=== PATIENT | female | born 1965 | race African-American/Black ===

== ENCOUNTER 2017-08-02 19:00 | Emergency (ER) | payer MEDICAID ==
[~2017-08-02] VITALS: Ht 165.1 cm; Wt 81.7 kg
[~2017-08-02 19:00] MED LIST: ACCURETIC 20-11 EACH PO; ADULT LOW DOSE81 MG PO; ADVIL COLD & S1 EAC1; ADVIL200 M2 PO; AMBIEN 5 MG TABL5 M1 PO; AMITRIPTYLINE H25 M2 PO; AMITRIPTYLINE H25 M3; AMITRIPTYLINE H25 M4 PO; AMOXICILLIN 50500 M1 PO; ASPIR 8181 MG PO; ASPIRIN81 M2 PO; ATIVAN1 MG PO; AUGMENTIN 875-1 EACH PO; AUGMENTIN 875875 MG PO; BACTRIM DS TAB1 EACH PO; BENTYL 10 MG CA10 M1 PO; BENTYL 20 MG TA20 M1 PO; BISAC-EVAC10 MG RECTAL; BISACODYL5 MG PO; CAMPRAL 333 MG333 M1 PO; CELEXA 10 MG TA10 MG PO; CELEXA20 MG PO; CENTRUM COMPLE1 EACH PO; CENTRUM SILVER1 EAC4 PO; CIPRO500 MG PO; CLARITIN10 MG PO; COLACE 100 MG100 MG PO; CREON 10 CAPSUL1 CA1 PO; CREON DR 24,001 EACH PO; CRESTOR10 MG PO; CYCLOBENZAPRINE10 MG PO; DIABETES MED; DUONEB 2.5-0.5 M3 ML INH; EASY-LAX100 MG PO; ELAVIL; FIBER1 GM PO; FISHOIL; FLAGYL500 MG PO; FLONASE 0.05%50 MCG NASAL; FOLBIC RF TABL1 EACH PO; FOLIC ACID1 MG PO; GLUCOPHAGE500 MG PO; GLUCOTROL XL2.5 MG PO; HUMALOG100 UNIT/1 SUBQ; HYDROCODON-ACE1 EAC8 PO; HYDROCODONE-AP1 EAC6 PO; IBUPROFEN 400400 M2 PO; IBUPROFEN 800800 M1 PO; IRON; IRON325 PO; K-DUR 20 MEQ T20 MEQ; K-DUR 20 MEQ T20 MEQ PO; KEFLEX500 MG PO; KEPPRA 500 MG500 M1 PO; KEPPRA 500 MG500 MG PO; KLOR-CON 10 ER10 MEQ PO; LANTUS SUBQ; LANTUS100 UNIT/M SUBQ; LEVAQUIN 500 M500 M2 PO; LIPITOR10 MG; LISINOPRIL-HCT1 EAC2 PO; LOPID600 MG PO; LOPRESSOR25 PO; MACROBID 100 M100 MG PO; MAGNESIUM OXID400 MG PO; MAGOX 400400 MG PO; MAXALT; MAXALT MLT ODT 55 M1 PO; MECLIZINE HCL12.5 MG PO; MECLIZINE HCL25 M1 PO; METFORMIN HCL500 MG PO; METOPROLOL SUCC50 MG PO; MICROZIDE12.5 MG PO; MIRALAX17 G1 PO; MOBIC7.5 M1 PO; MOBIC7.5 MG PO; MOM PO; MULTIVITAMINS PO; MULTIVITAMINS1 EAC7 PO; NAPROSYN500 MG PO; NEXIUM 40 MG CA40 M1; NEXIUM40 MG PO; NICOTINE TRANSD14 M1 TD; NICOTINE TRANSD21 M1 TD; NORCO 5-325 TA1 EAC1 PO; NORCO 5-325 TA1 EACH PO; NORFLEX100 MG PO; OMEPRAZOLE40 MG PO; ONDANSETRON HCL4 M2 PO; OXYCODONE HCL 55 MG PO; PANCRELIPASE PO; PANTOPRAZOLE SO40 M1 PO; PAXIL10 MG; PEPCID40 MG PO; PERCOCET 5-3251 EACH PO; PERCOCET 7.5-31 EACH; PERCOCET PO; PHENERGAN 25 MG25 M1 PO; PHENERGAN 25 MG25 MG PO; PREDNISONE 10 M10 MG PO; PREDNISONE 20 M20 M1 PO; PREDNISONE50 MG PO; PRILOSEC40 MG PO; PRINIVIL20 MG PO; PROPRANOLOL 4040 MG PO; QUINAPRIL 20 MG20 MG PO; ROBAXIN 750 MG750 M1 PO; ROXICODONE5 MG PO; SSD25 GM TOP; TESSALON200 MG PO; TOPROL XL50 MG PO; TRAMADOL 50 MG50 MG PO; TRAMADOL HCL150 MG PO; ULTRACET TABLE1 EACH; ULTRAM 50MG TAB50 MG PO; ULTRAM50 MG PO; UNICOMPLEX M TA1 TA1 PO; VALACYCLOVIR1000 MG PO; VIOKASE PO; VITAMIN B-1100 M1 PO; ZANTAC 150MG T150 M1 PO; ZANTAC 150MG T150 MG PO; ZOFRAN ODT4 MG DISSOLVE; ZOFRAN ODT4 MG PO; ZOFRAN4 MG PO; ZOVIRAX200 MG PO; ZPAK PO
[2017-08-02 19:53] LABS: ABSOLUTE BASOPHILS 0.1 thou/uL (0.0-0.2); ABSOLUTE EOSINOPHILS 0.1 thou/uL (0.0-0.7); ABSOLUTE LYMPHOCYTES 2.7 thou/uL (0.8-5.3); ABSOLUTE MONOCYTES 0.5 thou/uL (0.0-1.2); ABSOLUTE NEUTROPHILS 3.2 thou/uL (1.6-8.1); BASOPHILS 0.9 %; HEMATOCRIT 40.4 % (37.0-47.0); HEMOGLOBIN 13.5 gm/dL (12.0-15.0); LYMPHOCYTES 40.9 %; MCH 32.6 pg (26.0-34.0); MCHC 33.4 g/dL (28.0-37.0); MCV 97.5 fL (80.0-100.0); MONOCYTES 7.9 %; MPV 10.1 fl. (7.2-11.1); NUCLEATED RBCS 0 /100WBC; PLATELET COUNT* 111 thou/uL (150-400); POLYS 49.3 %; RBC 4.15 mil/uL (4.20-5.00); RDW-CV 13.6 % (10.5-14.5); WBC 6.5 thou/uL (4.0-11.0)
[2017-08-02 19:58] LABS: CALCIUM 9.7 mg/dL (8.5-10.1); CREATININE 1.3 mg/dL (0.6-1.3)
[2017-08-02 20:03] LABS: ALBUMIN 3.9 g/dL (3.4-5.0); TOTAL BILIRUBIN 0.4 mg/dL (<0.1-1.0); TOTAL PROTEIN 8.1 g/dL (6.4-8.2)
[2017-08-02 22:06] LABS: URINE BILIRUBIN NEGATIVE (Negative); URINE BLOOD NEGATIVE (Negative); URINE CLARITY CLEAR; URINE COLOR YELLOW; URINE GLUCOSE-RANDOM 3+ (Negative); URINE KETONES NEGATIVE (Negative); URINE LEUKOCYTES-REFLEX NEGATIVE (Negative); URINE NITRITE-REFLEX NEGATIVE (Negative); URINE PROTEIN NEGATIVE (Negative); URINE SPECIFIC GRAVITY 1.015 (1.005-1.030); URINE UROBILINOGEN 0.2 E.U./dl (0.2-1.0)
[2017-08-03 00:27] VITALS: BP 131/78
--- NOTE | 2017-08-03 20:14 | EKG ---
[place] [address] ELECTROCARDIOGRAM REPORT Name: SHAHRAM QUESADAIAMA SADIE Room: [facility]#: [id number] Admission: 08/02/17 Attend Phys: Discharge: 08/03/17 Date of : 63 Report #: [id number] THIS REPORT FOR: //name// [facility] ED Test Date: 2017-08-02 Test Time: 19:51:38 Pat Name: AMANDA QUESADA Department: Room: Gender: F Optimization Specialist: FRANKY Nava : 1965 Requested By: Sydnee Davis Order Number: [id number] MD: Jose C Delarosa Measurements Intervals [place] Rate: 72 P: 30 ND: 132 QRS: -14 QRSD: 90 T: 7 QT: 377 QTc: 413 Interpretive Statements Sinus rhythm Probable left atrial enlargement Low voltage, precordial leads Left ventricular hypertrophy Anterior Q waves, possibly due to LVH Compared to ECG 06/05/2017 08:46:13 Low QRS voltage now present Left ventricular hypertrophy now present Q waves now present Electronically Signed On 08-03-2017 20:14:17 BINGO FLOATER by Jose C Delarosa [email or web address] <ELECTRONICALLY SIGNED> By: Jose C Delarosa MD, FACC 08/03/172013 50 50 Jose C Delarosa MD, FACC /EPI
== END 2017-08-03 00:34 | disposition home or self-care (01) ==
LOC: M.ERS 19:00
PROVIDERS: Emergency Medicine
DX: E11.65 Type 2 diabetes mellitus with hyperglycemia (principal); K74.60 Unspecified cirrhosis of liver; G43.909 Migraine, unspecified, not intractable, without status migrainosus; E11.40 Type 2 diabetes mellitus with diabetic neuropathy, unspecified; F17.210 Nicotine dependence, cigarettes, uncomplicated; Z88.8 Allergy status to other drugs, medicaments and biological substances; Z88.1 Allergy status to other antibiotic agents; Z79.4 Long term (current) use of insulin

== ENCOUNTER 2017-08-08 16:19 | Emergency (ER) | payer MEDICAID ==
[~2017-08-08] VITALS: Ht 165.1 cm; Wt 81.7 kg
[2017-08-08 16:25] VITALS: BP 117/78
[2017-08-08] MEDS ORDERED: NAPROSYN500 MG PO (17:19)
[2017-08-08] MEDS ORDERED: NORCO 5-325 TA1 EACH PO (17:19)
== END 2017-08-08 18:01 | disposition home or self-care (01) ==
LOC: M.ERS 16:19
DX: S63.592A Other specified sprain of left wrist, initial encounter (principal); G43.909 Migraine, unspecified, not intractable, without status migrainosus; E11.40 Type 2 diabetes mellitus with diabetic neuropathy, unspecified; K74.60 Unspecified cirrhosis of liver; F17.210 Nicotine dependence, cigarettes, uncomplicated; Z79.4 Long term (current) use of insulin; Z88.1 Allergy status to other antibiotic agents; Z88.8 Allergy status to other drugs, medicaments and biological substances; W18.39XA Other fall on same level, initial encounter; Y93.89 Activity, other specified; Y92.89 Other specified places as the place of occurrence of the external cause; Y99.8 Other external cause status

== ENCOUNTER 2017-10-19 16:34 | Emergency (ER) | payer MEDICAID ==
[~2017-10-19] VITALS: Ht 167.6 cm; Wt 78.5 kg
[2017-10-19] MEDS ORDERED: LANTUS100 UNIT/M SUBQ (16:50)
[2017-10-19 16:53] LABS: URINE BILIRUBIN NEGATIVE (Negative); URINE BLOOD 1+ (Negative); URINE CLARITY CLOUDY; URINE COLOR YELLOW; URINE GLUCOSE-RANDOM 3+ (Negative); URINE KETONES 1+ (Negative); URINE LEUKOCYTES-REFLEX TRACE (Negative); URINE NITRITE-REFLEX NEGATIVE (Negative); URINE PROTEIN NEGATIVE (Negative); URINE SPECIFIC GRAVITY <= 1.005 (1.005-1.030); URINE UROBILINOGEN 0.2 E.U./dl (0.2-1.0)
[2017-10-19 17:02] LABS: SQUAMOUS >10 Many /LPF (0-3)
[2017-10-19 17:03] LABS: CASTS None Seen /LPF (None Seen); CRYSTALS None Seen /LPF (None Seen); MUCUS 0-3 Light strn/LPF (None Seen); URINE RBC 3-10 Few /HPF (0-2); URINE WBC-REFLEX >25 Many /HPF (0-5); WBC CLUMPS Few (None Seen)
[2017-10-19] MEDS ORDERED: BACTRIM DS TAB1 EACH PO (17:07)
[2017-10-19] MEDS ORDERED: DIFLUCAN150 MG PO (17:07)
[2017-10-19] MEDS ORDERED: PYRIDIUM200 MG PO (17:07)
[2017-10-19 17:40] VITALS: BP 137/86
== END 2017-10-19 17:41 | disposition home or self-care (01) ==
LOC: M.ERS 16:34
PROVIDERS: Nurse Practitioner Family
DX: N39.0 Urinary tract infection, site not specified (principal); B37.9 Candidiasis, unspecified; F17.210 Nicotine dependence, cigarettes, uncomplicated; E11.40 Type 2 diabetes mellitus with diabetic neuropathy, unspecified; G43.909 Migraine, unspecified, not intractable, without status migrainosus; K74.60 Unspecified cirrhosis of liver; Z79.4 Long term (current) use of insulin; Z88.8 Allergy status to other drugs, medicaments and biological substances; Z88.1 Allergy status to other antibiotic agents

== ENCOUNTER 2018-01-31 16:31 | Emergency (ER) | payer MEDICAID ==
[~2018-01-31] VITALS: Ht 165.1 cm; Wt 77.1 kg
[~2018-01-31 16:31] MED LIST changes: +DIFLUCAN150 MG PO; +PYRIDIUM200 MG PO
[2018-01-31 17:09] LABS: ABSOLUTE BASOPHILS 0.1 thou/uL (0.0-0.2); ABSOLUTE EOSINOPHILS 0.1 thou/uL (0.0-0.7); ABSOLUTE LYMPHOCYTES 3.2 thou/uL (0.8-5.3); ABSOLUTE MONOCYTES 0.7 thou/uL (0.0-1.2); ABSOLUTE NEUTROPHILS 2.7 thou/uL (1.6-8.1); BASOPHILS 1.2 %; EOSINOPHILS 1.3 %; HEMATOCRIT 39.7 % (37.0-47.0); HEMOGLOBIN 13.1 gm/dL (12.0-15.0); MCV 99.8 fL (80.0-100.0); MONOCYTES 10.5 %; MPV 9.3 fl. (7.2-11.1); NUCLEATED RBCS 0 /100WBC; PLATELET COUNT* 115 thou/uL (150-400); RBC 3.98 mil/uL (4.20-5.00); RDW-CV 14.8 % (10.5-14.5); WBC 6.8 thou/uL (4.0-11.0)
[2018-01-31 17:17] LABS: ANION GAP 11 mmol/L (7-16); BUN 6 mg/dL (7-18); CALCIUM 8.5 mg/dL (8.5-10.1); CHLORIDE 101 mmol/L (98-107); CO2 28 mmol/L (21-32); GLUCOSE 353 mg/dL (70-99); POTASSIUM 3.8 mmol/L (3.5-5.1); SODIUM 140 mmol/L (136-145)
[2018-01-31 17:23] LABS: APTT 25.5 Seconds (25.0-31.3); INR 1.2; PROTIME 11.5 Seconds (9.20-11.50)
[2018-01-31 17:24] LABS: ALBUMIN 2.8 g/dL (3.4-5.0); ALKALINE PHOSPHATASE 291 U/L (46-116); SGOT 98 U/L (15-37); SGPT 64 U/L (30-65); TOTAL BILIRUBIN 0.4 mg/dL (<0.1-1.0); TROPONIN-I LEVEL <0.06 ng/mL (<0.06)
[2018-01-31 19:10] VITALS: BP 110/62
--- NOTE | 2018-02-01 11:05 | EKG ---
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 02/01/18 1105 1701 170 Brigido Gutierrez MD, [facility] /EPI
== END 2018-01-31 19:10 | disposition short-term general hospital (02) ==
LOC: M.ERS 16:31
PROVIDERS: Physician Assistant
DX: S01.81XA Laceration without foreign body of other part of head, initial encounter (principal); S11.90XA Unspecified open wound of unspecified part of neck, initial encounter; S16.1XXA Strain of muscle, fascia and tendon at neck level, initial encounter; S10.95XA Superficial foreign body of unspecified part of neck, initial encounter; F10.129 Alcohol abuse with intoxication, unspecified; Y90.6 Blood alcohol level of 120-199 mg/100 ml; E11.65 Type 2 diabetes mellitus with hyperglycemia; R55 Syncope and collapse; E87.2 Acidosis; G43.909 Migraine, unspecified, not intractable, without status migrainosus; K74.60 Unspecified cirrhosis of liver; F17.210 Nicotine dependence, cigarettes, uncomplicated; Z88.1 Allergy status to other antibiotic agents; Z88.8 Allergy status to other drugs, medicaments and biological substances; W18.39XA Other fall on same level, initial encounter; Y93.89 Activity, other specified; Y92.89 Other specified places as the place of occurrence of the external cause; Y99.8 Other external cause status

== ENCOUNTER 2018-02-25 22:25 | Emergency (ER) | payer MEDICAID ==
[~2018-02-25] VITALS: Ht 165.1 cm; Wt 77.1 kg
[2018-02-26 00:26] VITALS: BP 106/62
== END 2018-02-26 00:28 | disposition home or self-care (01) ==
LOC: M.ERS 22:25
DX: S01.01XA Laceration without foreign body of scalp, initial encounter (principal); F10.129 Alcohol abuse with intoxication, unspecified; W18.30XA Fall on same level, unspecified, initial encounter; Y93.89 Activity, other specified; Y92.89 Other specified places as the place of occurrence of the external cause; Y99.8 Other external cause status; G43.909 Migraine, unspecified, not intractable, without status migrainosus; E11.40 Type 2 diabetes mellitus with diabetic neuropathy, unspecified; Z90.49 Acquired absence of other specified parts of digestive tract; F17.210 Nicotine dependence, cigarettes, uncomplicated; Z88.1 Allergy status to other antibiotic agents; Z88.8 Allergy status to other drugs, medicaments and biological substances

== ENCOUNTER 2018-03-13 15:09 | Inpatient (IN) | payer MEDICAID ==
[2018-03-13] VITALS (8 sets, daily range): BP systolic 135–162; BP diastolic 70–90
[~2018-03-13] VITALS: Ht 165.1 cm; Wt 80.6 kg
[2018-03-13 15:40] LABS: ABSOLUTE BASOPHILS 0.2 thou/uL (0.0-0.2); ABSOLUTE LYMPHOCYTES 1.5 thou/uL (0.8-5.3); ABSOLUTE MONOCYTES 0.7 thou/uL (0.0-1.2); ABSOLUTE NEUTROPHILS 7.2 thou/uL (1.6-8.1); EOSINOPHILS 0.5 %; HEMATOCRIT 32.1 % (37.0-47.0); HEMOGLOBIN 10.5 gm/dL (12.0-15.0); LYMPHOCYTES 15.8 %; MCH 33.3 pg (26.0-34.0); MCHC 32.6 g/dL (28.0-37.0); MCV 101.9 fL (80.0-100.0); MONOCYTES 7.4 %; MPV 9.6 fl. (7.2-11.1); NUCLEATED RBCS 0 /100WBC; PLATELET COUNT* 108 thou/uL (150-400); POLYS 74.3 %; RBC 3.15 mil/uL (4.20-5.00); RDW-CV 15.6 % (10.5-14.5); WBC 9.7 thou/uL (4.0-11.0)
[2018-03-13 15:53] LABS: ANION GAP 12 mmol/L (7-16); BUN 5 mg/dL (7-18); CALCIUM 7.7 mg/dL (8.5-10.1); CHLORIDE 108 mmol/L (98-107); CO2 24 mmol/L (21-32); CREATININE 0.9 mg/dL (0.6-1.3); GLUCOSE 197 mg/dL (70-99); POTASSIUM 4.4 mmol/L (3.5-5.1); SODIUM 144 mmol/L (136-145)
[2018-03-13 15:55] LABS: APTT 29.4 Seconds (25.0-31.3); INR 1.2; PROTIME 12.5 Seconds (9.20-11.50)
[2018-03-13 16:04] LABS: ALBUMIN 1.7 g/dL (3.4-5.0); ALKALINE PHOSPHATASE 237 U/L (46-116); NT-PRO BRAIN NAT PEPTIDE 1058 pg/mL (<300); SGOT 43 U/L (15-37); SGPT 23 U/L (30-65); TOTAL BILIRUBIN 0.6 mg/dL (<0.1-1.0); TOTAL PROTEIN 6.1 g/dL (6.4-8.2); TROPONIN-I LEVEL <0.06 ng/mL (<0.06)
[2018-03-13 16:08] LABS: BE -1.7 mmol/L (-2 to +3); HCO3 21.1 mmol/L (22.0-26.0); PCO2 29.7 mmHg (35.0-45.0); PO2 62.7 mmHg (75.0-100.0)
[2018-03-13 20:39] LABS: URINE BILIRUBIN NEGATIVE (Negative); URINE BLOOD NEGATIVE (Negative); URINE CLARITY CLEAR; URINE COLOR YELLOW; URINE GLUCOSE-RANDOM 2+ (Negative); URINE KETONES NEGATIVE (Negative); URINE LEUKOCYTES-REFLEX NEGATIVE (Negative); URINE NITRITE-REFLEX NEGATIVE (Negative); URINE PROTEIN NEGATIVE (Negative); URINE UROBILINOGEN 0.2 E.U./dl (0.2-1.0)
[2018-03-13 20:52] LABS: INFLUENZA A ANTIGEN None Detected (None Detect); INFLUENZA B ANTIGEN None Detected (None Detect)
[2018-03-13 21:32] LABS: AMP/METHAMP Negative (Negative); BARBITURATES Negative (Negative); BENZODIAZEPINES Negative (Negative); COCAINE Negative (Negative); METHADONE Negative (Negative); OPIATES POSITIVE (Negative); PCP Negative (Negative); THC Negative (Negative)
[2018-03-14] VITALS (22 sets, daily range): BP systolic 95–161; BP diastolic 35–101
[2018-03-14 04:22] LABS: ABSOLUTE BASOPHILS 0.1 thou/uL (0.0-0.2); ABSOLUTE MONOCYTES 0.4 thou/uL (0.0-1.2); ABSOLUTE NEUTROPHILS 7.9 thou/uL (1.6-8.1); BASOPHILS 0.6 %; HEMATOCRIT 27.4 % (37.0-47.0); HEMOGLOBIN 9.1 gm/dL (12.0-15.0); LYMPHOCYTES 10.8 %; MCH 33.6 pg (26.0-34.0); MCHC 33.3 g/dL (28.0-37.0); MCV 101.1 fL (80.0-100.0); MONOCYTES 4.8 %; MPV 9.9 fl. (7.2-11.1); NUCLEATED RBCS 0 /100WBC; PLATELET COUNT* 103 thou/uL (150-400); POLYS 83.8 %; RBC 2.71 mil/uL (4.20-5.00); RDW-CV 15.4 % (10.5-14.5); WBC 9.4 thou/uL (4.0-11.0)
[2018-03-14 04:35] LABS: CALCIUM 7.4 mg/dL (8.5-10.1); CREATININE 0.8 mg/dL (0.6-1.3); POTASSIUM 4.1 mmol/L (3.5-5.1)
--- NOTE | 2018-03-14 06:23 | NUR ---
Pt admitted to ICU shortly before start of shift. SaO2 low 90s on 15L NRB mask, RR upper 30s. C/O pain beneath R breast secondary to rib fxs. Received order from Dr. Davis for one time dose of Oxy IR. Pt states pain 10/10, then down to 8/10 after Oxy IR. Pt started on BIPAP at 2230, and RR in mid- 20s with SaO2 in mid-90s. Breath snds clear/dim throughout shift. Santos placed, draining clear yellow urine. Pt c/o headache d/t BIPAP. Tylenol given with little to no relief. At one point, bc of headache, pt removed BIPAP; SaO2 dropped to upper 50s before NRB placed, then BIPAP replaced. Educated pt on importance of keeping BIPAP on. Will continue to monitor.
--- NOTE | 2018-03-14 08:02 | NUR ---
ASSUMED PT CARE 0730. PT A/O X'S 4. TRACING SR. VSS. AFEBRILE. PT ON BIPAP AND REQUESTED TO TAKE OFF. PT 99% ON BIPAP. PT PLACED ON NON-REBREATHER AND CURRENTLY SATTING AT 91-92%. PT DENIES PAIN. PT REPORTS SHE HAD STABLES IN LEFT ANTERIOR PART OF HEAD THAT WERE REMOVED AND FEELS TENDER AT THAT SPOT. PT REQUESTING FOOD. DISCUSSED WITH PT LABS AND PLAN OF CARE. WILL CONTINUE PLAN OF CARE.
--- NOTE | 2018-03-14 11:00 | NUR ---
PT ADMITTED YESTERDAY WITH RESP FAILURE. PT REMAINS ON NRB MASK. SPOKE WITH PT, SHE WAS ALERT AND ORIENTED. SHE SAID SHE LIVES ALONE, HER S.O. NORMA COMES BY EVERY DAY TO CHECK ON HER, SOMETIMES HE STAYS AND SOMETIMES HE GOES BACK TO HIS OWN HOME. SHE SAID SHE HAS BEEN USING HER WALKER RECENTLY BUT IS STILL HAVING PROBLEMS WITH FALLING AT HOME. SHE DOES NOT HAVE HOME 02. PT SAID SHE NO LONGER SMOKES OR DRINKS, 'I QUIT THAT ON MY OWN AFTER A HOSPITAL STAY.' DISCUSSED ROLE OF CASE MGT, WILL CONTINUE TO FOLLOW. PT PLANS ON RETURNING HOME ALONE, WITH CONTINUED SUPPORT FROM HER S.O. AND FAMILY.
--- NOTE | 2018-03-14 12:43 | 2DMMODE ---
[place] [address] 2 D/M-MODE ECHOCARDIOGRAM Name: SHAHRAM QUESADAAMANDA Room: [address] ADM IN M.R.#: [id number] Admission: 03/13/18 Attend Phys: Roge Davis, Discharge: Date of : 63 Date of Service: 03/14/18 1242 Report #: [id number] THIS REPORT FOR: //name// APPROVED REPORT Study performed: 03/14/2018 10:29:39 EXAM: Comprehensive 2D, Doppler, and color-flow Echocardiogram Patient Location: Bedside BSA: 1.94 HR: 97 bpm BP: 140/85 mmHg Other Information Study Quality: Fair Indications Sepsis 2D Dimensions IVSd: 12.69 (7-11mm) LVOT Diam: 19.01 (18-24mm) LVDd: 45.91 mm PWd: 10.71 (7-11mm) Ascending Ao: 27.35 (22-36mm) LVDs: 27.74 (25-40mm) Aortic Root: 22.92 mm Volumes Left Atrial Volume (Systole) LA ESV Index: 21.80 mL/m2 Aortic Valve AoV Peak Dyllan.: 1.26 m/s AO Peak Gr.: 6.34 mmHg LVOT Max P.12 mmHg AO Mean Gr.: 3.32 mmHg LVOT Mean P.10 mmHg LVOT Max V: 1.01 m/s AO V2 VTI: 23.05 cm LVOT Mean V: 0.68 m/s VANDANA (VTI): 2.78 cm2 LVOT V1 VTI: 22.57 cm Mitral Valve E/A Ratio: 1.02 MV Decel. Time: 244.49 ms MV E Max Dyllan.: 0.74 m/s MV PHT: 70.90 ms MVA (PHT): 3.10 [place]2 [place] [address] 2 D/M-MODE ECHOCARDIOGRAM Name: SHAHRAM QUESADAAMANDA SADIE Room: [address] IN ..#: [id number] Admission: 03/13/18 Attend Phys: Roge Davis, Discharge: Date of : 63 Date of Service: 03/14/18 1242 Report #: [id number] TDI E/Lateral E': 6.17 E/Medial E': 9.25 Medial E' Dyllan.: 0.08 m/s Lateral E' Dyllan.: 0.12 m/s Pulmonary Valve PV Peak Dyllan.: 0.81 m/s PV Peak Gr.: 2.60 mmHg Tricuspid Valve RAP Estimate: 5.00 mmHg TR Peak Gr.: 37.95 mmHg RVSP: 42.95 mmHg PA Pressure: 42.95 mmHg Left Ventricle The left ventricle is normal size. There is normal LV segmental wall motion. There is normal left ventricular wall thickness. Left ventricular systolic function is normal. The left ventricular ejection fraction is within the normal range. LVEF is 60%. The left ventricular diastolic function is normal. Right Ventricle The right ventricle is normal size. The right ventricular systolic function is normal. Atria The left atrium size is normal. The right atrium size is normal. Aortic Valve The aortic valve is normal in structure. No aortic regurgitation is present. There is no aortic valvular stenosis. Mitral Valve The mitral valve is normal in structure. Trace mitral regurgitation. No evidence of mitral valve stenosis. Tricuspid Valve The tricuspid valve is normal in structure. Mild to moderate tricuspid regurgitation. Pulmonic Valve The pulmonary valve is normal in structure. There is no pulmonic valvular regurgitation[place] [address] 2 D/M-MODE ECHOCARDIOGRAM Name: AMANDA ROGERS Room: [address] IN [facility]#: [id number] Admission: 03/13/18 Attend Phys: Roge Davis, Discharge: Date of : 63 Date of Service: 03/14/18 1242 Report #: [id number] The aortic root is normal in size. IVC is not well visualized. Pericardium There is no pericardial effusion. <Conclusion> The left ventricle is normal size. There is normal left ventricular wall thickness. Left ventricular systolic function is normal. The left ventricular ejection fraction is within the normal range. LVEF is 60%. The left ventricular diastolic function is normal. The right ventricle is normal size. The left atrium size is normal. The aortic valve is normal in structure. The mitral valve is normal in structure. The tricuspid valve is normal in structure. Mild to moderate tricuspid regurgitation. There is no pericardial effusion. There is normal LV segmental wall motion. <ELECTRONICALLY SIGNED> By: Ender Hodge MD, FACC 03/14/18 1242 1242 124 Ender Hodge MD, FACC /INF
--- NOTE | 2018-03-14 16:28 | EKG ---
[place] [address] ELECTROCARDIOGRAM REPORT Name: AMANDA ROGERSBRIDGETTEJudith Room: [address] ADM IN M.R.#: [id number] Admission: 03/13/18 Attend Phys: Roge Davis MD Discharge: Date of : 63 Report #: [id number] THIS REPORT FOR: //name// [facility] ED Test Date: 2018-03-13 Test Time: 15:19:01 Pat Name: AMANDA QUESADA Department: Room: [facility] Gender: F Cpr Ambulance Driver: HEATHER : 1965 Requested By: Parag Vincent Order Number: [id number] MD: Ender Hodge Measurements Intervals [place] Rate: 113 P: 22 OK: 119 QRS: 17 QRSD: 86 T: -16 QT: 347 QTc: 476 Interpretive Statements Sinus tachycardia Low voltage, precordial leads Borderline T abnormalities, diffuse leads Borderline prolonged QT interval Compared to ECG 01/31/2018 17:01:00 Low QRS voltage now present T-wave abnormality now present Sinus rate has increased Left ventricular hypertrophy no longer present Electronically Signed On 03-14-2018 16:28:16 CDT by Ender Hodge [email or web address] <ELECTRONICALLY SIGNED> By: Ender Hodge MD, [facility] 03/14/18 1628 1519 1519 Ender Hodge MD, [facility] /EPI
--- NOTE | 2018-03-14 16:31 | NUR ---
PER PULMONARY PT CHANGED TO NC AT 15L NC DURING BREAKFAST. PT DESATS TO 71% AND UNABLE TO BRING SATS UP HIGHER THAN 81%. PT PLACED BACK ON NRB AND PULMONARY NOTIFIED. PER PULMONARY PT OKAY TO EAT A BITE OF FOOD WHILE ON BIPAP IF ABLE TO MAINTAIN SATS UP. AT LUNCH PT DESATTING TO 56% AFTER A COUPLE BITES OF FOOD. FOOD TAKEN AWAY AND PT PLACED ON BIPAP. CURRENTLY PT STATES SHE FEELS BREATHING IS BETTER. PT SATTING >95% ON BIPAP. PT C/O OF NAUSEA PRN ZOFRAN ADMINISTERED. PT C/O OF CHEST PAIN WITH COUGHING AND INSPIRATION. DR NOTIFIED. PER NARCOTICS WILL NOT HELP PT'S RESPIRATORY STATUS. RECIEVED PRN ORDER FOR OXY. PT EDUCATED ON NARCOTICS AND RESPIRATORY STATUS. PT REPORTS SHE IS OKAY TO NOT TAKE PAIN MEDICATION AT THIS TIME. PT REPORTS COMFORTABLE PAIN NUMBER IS 5/10.
--- NOTE | 2018-03-14 18:27 | NUR ---
PT WORE BIPAP THIS AFTERNOON FOR 4 HOURS FROM 1300 TO 1700. PT OFF BIPAP FOR 1 HOUR AND 15 MINUTES. PT ATTEMPTED TO EAT DINNER, HOWEVER DESATTING TO 81% ON NON-REBREATHER. PT REQUESTED TO GO BACK ON BIPAP AND REPORTS BREATHING IS BETTER WITH BIPAP. PT REQUESTED HER PRN OXY IR. PT EDUCATED 2ND TIME ABOUT TRYING TO AVOID NARCOTICS FOR RESPIRATORY STATUS.
--- NOTE | 2018-03-14 18:29 | NUR ---
ATTENTION CASE MANAGEMENT: PT AND SPOUSE REPORT PT NEEDS WALKER SHE CAN SIT IN AT HOME AND SHOWER CHAIR OR BENCH FOR SHOWER. SPOUSE REPORTS PT HAS HAD EPISODES OF HYPOGLYCEMIA AND PT DOES NOT LIKE GLUCOSE TABS AND AT ONE POINT BLOOD GLUCOSE WAS TOO LOW AND NEEDED GEL. SPOUSE REPORTS WHENEVER THEY GO TO [facility] FOR GLUCOSE GEL, PHARMACY IS OUT.
[2018-03-15] VITALS (19 sets, daily range): BP systolic 111–187; BP diastolic 63–100
[2018-03-15 04:42] LABS: HEMATOCRIT 29.2 % (37.0-47.0); HEMOGLOBIN 9.4 gm/dL (12.0-15.0); MCH 32.9 pg (26.0-34.0); MCHC 32.2 g/dL (28.0-37.0); MCV 102.1 fL (80.0-100.0); MPV 9.9 fl. (7.2-11.1); NUCLEATED RBCS 0 /100WBC; PLATELET COUNT* 139 thou/uL (150-400); RBC 2.86 mil/uL (4.20-5.00); RDW-CV 15.7 % (10.5-14.5); WBC 11.4 thou/uL (4.0-11.0)
--- NOTE | 2018-03-15 04:50 | NUR ---
Pt slept intermittently overnight. Was on BIPAP for almost entire shift with exception of when taking po meds on 3 occasions. When on NRB mask, O2 sats are labile. Within 5-10 minutes SaO2 drops to upper 80s. Medicated once for c/o pain to rt side of chest from recent rib fxs. Reports that she fell asleep within an hour of taking the medication. VSS. Otherwise no complaints. Will continue to monitor.
[2018-03-15 04:55] LABS: ALBUMIN 1.5 g/dL (3.4-5.0); CALCIUM 7.2 mg/dL (8.5-10.1); CREATININE 0.7 mg/dL (0.6-1.3); POTASSIUM 4.3 mmol/L (3.5-5.1); TOTAL BILIRUBIN 0.4 mg/dL (<0.1-1.0); TOTAL PROTEIN 6.1 g/dL (6.4-8.2)
[2018-03-15 05:52] LABS: ABSOLUTE LYMPHOCYTES 0.9 thou/uL (0.8-5.3); ABSOLUTE MONOCYTES 0.3 thou/uL (0.0-1.2); ABSOLUTE NEUTROPHILS 10.1 thou/uL (1.6-8.1); HYPOCHROMASIA Occasional; PLATELET ESTIMATE DECREASED
[2018-03-15 05:53] LABS: ANISOCYTOSIS 1+; POIKILOCYTOSIS 1+; POLYCHROMASIA Occasional
[2018-03-15 07:53] LABS: BE -3.2 mmol/L (-2 to +3); HCO3 21.6 mmol/L (22.0-26.0); PCO2 37.7 mmHg (35.0-45.0); pH 7.376 (7.340-7.450)
--- NOTE | 2018-03-15 07:56 | CON ---
[address] [address] CONSULTATION Name: AMANDA ROGERS Room: [address] IN M.R.#: [id number] Admission: 03/13/18 Attend Phys: Roge Davis MD Discharge: Date of : 63 Report #: [id number] THIS REPORT FOR: //name// CC: Roge Davis [facility] physician/PCP DATE OF SERVICE: 03/14/2018 INFECTIOUS DISEASE CONSULTATION ATTENDING PHYSICIAN: Roge Davis M.D. REASON FOR EVALUATION: Bilateral pneumonitis complicated by respiratory failure. HISTORY OF PRESENT ILLNESS: Chart reviewed, patient examined. This is a 52-year-old, with extensive medical history, given her age including diabetes mellitus, has apparently underlying cirrhosis, seizures, who was admitted through the Emergency Room with complaints of dyspnea. She noted any activity led to severe shortness of breath and some chest discomfort as well. It is notable she was just hospitalized for several days, discharged, I believe less than 24 hours, being admitted. It is not clear that she has had fevers. On evaluation, he was found to be hypoxemic. His imaging studies suggest bilateral pneumonitis, possibly multifactorial including a component of pulmonary edema due to respiratory compromise. She is now on Ventimask and is scheduled to have BiPAP. She is generally lucid. She is empirically started on antimicrobials including vancomycin and piperacillin and tazobactam. ALLERGIES: LISTED TO CEPHALEXIN, WHICH CAUSES PRURITUS, DIPHENHYDRAMINE PARADOXICAL REACTION TO THAT WELL CAUSING ITCHING. CURRENT MEDICATIONS: Include oxycodone, vancomycin, metoprolol, fluticasone, citalopram, loratadine, multivitamin, aspirin, insulin, pantoprazole, amitriptyline, levetiracetam, enoxaparin, ipratropium and albuterol inhaler, piperacillin, tazobactam, dicyclomine, p.r.n. analgesics and antiemetics. PAST MEDICAL HISTORY: Includes diabetes mellitus complicated by some peripheral neuropathy with some vasculopathy as well, cirrhosis, history of seizures, pancreatitis, migraines, chronic back pain, anxiety, depression. SOCIAL HISTORY: Former smoker. No ethanol. FAMILY HISTORY: Noncontributory. REVIEW OF SYSTEMS: As above. Denies significant gastrointestinal-related complaints, [place] [address] CONSULTATION Name: AMANDA ROGERS VINITAKENYETTA Room: [address]#: [id number] Admission: 03/13/18 Attend Phys: Roge Davis MD Discharge: Date of : 63 Report #: [id number] PHYSICAL EXAMINATION: GENERAL: She appears chronically ill. She has at least moderate respiratory distress. She has a Ventimask in place. She does not appear to be significantly encephalopathic. VITAL SIGNS: Temperature 96.7, pulse 97, respirations 27, blood pressure 140/85. SKIN: Warm, dry, no rashes. HEENT: Unremarkable. NECK: Supple. LUNGS: Scattered coarse breath sounds. HEART: Regular. Borderline tachycardic. I do not appreciate murmur. ABDOMEN: Soft. There are no overt peritoneal signs. GENITOURINARY: Deferred. RECTAL: Deferred. Echo, ejection fraction of 60%. Valves are unremarkable except some mild to moderate tricuspid regurgitation. LABORATORY DATA: Blood cultures are sterile thus far. CBC: White count of 9.4, H and H and 9.1 and 27.4, platelets of 103. Electrolytes: Sodium 142, potassium 4.1, chloride 110, bicarbonate is 24, anion gap of 8, BUN and creatinine 5 and 0.8, estimated GFR of 91. Influenza antigen was negative. Urinalysis unremarkable. Lactic acid was as high as 3.5. CT of the chest, extensive bilateral ground glass pulmonary opacities, can exclude multifocal pneumonia versus pulmonary edema. ASSESSMENT: Respiratory failure, suspect component of pneumonitis. We will continue the current empiric therapy, broad spectrum combination. It is not clear that will be able to collect sample, await culture results. Continue efforts to support with supplemental oxygen via positive pressure assistance. I suspect may well be multifactorial etiology. We will see how she does clinically in the next 48-72 hours. <ELECTRONICALLY SIGNED> By: Solomon Dang MD 03/15/18 0756 1452 1953Solomon Dang MD /nt
--- NOTE | 2018-03-15 08:39 | CON ---
[address] [address] CONSULTATION Name: AMANDA ROGERS Room: [address] IN M.R.#: [id number] Admission: 03/13/18 Attend Phys: Roge Davis MD Discharge: Date of : 63 Report #: [id number] THIS REPORT FOR: //name// CC: Roge Davis [facility] physician/PCP DATE OF SERVICE: 03/14/2018 REFERRING PHYSICIAN: Roge Davis MD CHIEF COMPLAINT: Respiratory failure. HISTORY OF PRESENT ILLNESS: The patient is a 52-year-old female who states that she quit smoking 2 years ago. At about that same time, she states that she quit drinking alcohol excessively. I am not sure that she is still consuming alcohol or not, but according to the patient, she says she is not The patient has had several falls over the past 4-6 weeks. She had been treated for a trauma to her face with a significant laceration under her chin. She was treated at [facility]. According to the patient, it became infected. She was treated with antibiotic therapy and has since healed. On the day of admission, the patient presented as a result of respiratory distress that has been happening to her off and on for the last several days. She denies any other symptomatology such as chest pain, cough, phlegm production, fever, chills, nausea, vomiting. According to the patient, she has continued to have a recent fall. She was hospitalized recently, was discharged from the hospital a day or two ago, only to be readmitted here with the respiratory distress problem. PAST MEDICAL HISTORY: Significant for alcoholism, hepatic cirrhosis, tobacco abuse. She has a history of bronchitis, hypertension, chronic pancreatitis, although has not had any acute issues recently. She has a history of seizure disorder. She apparently has diabetic neuropathy, although she did not mention diabetes as a medical condition. REVIEW OF SYSTEMS: System review negative other than what is outlined above. FAMILY HISTORY: Positive for coronary artery disease. She has had family members from myocardial infarctions. MEDICATIONS: She knows that she is on a medicine for seizure disorder. Apparently, records reflect she has been on diabetic medication. ALLERGIES: SHE IS ALLERGIC TO AN ANTIBIOTIC SHE IS UNAWARE OF THE NAME, ALTHOUGH THE RECORDS REFLECTS CEPHALEXIN. SHE ALSO HAS A HISTORY OF [place] [address] CONSULTATION Name: SHAHRAM BUENOAMANDA Castaneda Room: [address]#: [id number] Admission: 03/13/18 Attend Phys: Roge Davis MD Discharge: Date of : 63 Report #: [id number] CURRENT MEDICAL REGIMEN: Consists of vancomycin, metoprolol, fluticasone nasal spray, Celexa, loratadine, insulin therapy, Protonix, amitriptyline, Keppra, subcutaneous Lovenox, DuoNeb aerosol treatments, Zosyn. PHYSICAL EXAMINATION: VITAL SIGNS: Blood pressure 157/89, respiratory rate 27. She is nonlabored. Pulse rate is 98 and regular. Temperature 97 degrees. O2 saturation is marginal in the low 90% range with a 100% nonrebreather. HEAD: Reveals no obvious lesions. She does have a recent healed scar under her chin more laterally to the right. Otherwise, no other abrasions noted. No bruising. No soft tissue swelling of her face. EYES: Pupils are round and equal, reactive. Sclerae and conjunctivae are clear. ENT: Oral cavity is moist, no lesions. Nose, nasal passages are patent. NECK: No adenopathy or JVD. CHEST: Reveals crackles, predominantly in the mid lower lung bhatia bilaterally. There is no auscultatory wheezing or rhonchi. She has a poor inspiratory effort. CARDIOVASCULAR: Does reveal a regular rhythm, distant heart tones. No murmurs or rubs. ABDOMEN: Soft, without organomegaly, tenderness or guarding. EXTREMITIES: Negative for edema. SKIN: Warm and dry without rash. LYMPHATICS: Negative. Pulses equal bilaterally. NEUROLOGIC: She is able to move all 4 extremities. She answers questions appropriately. She is not in any distress during that time. Her cranial nerves appear intact at this point. LABORATORY DATA: Today, her electrolytes reveal sodium 142, potassium 4.1, chloride 110, CO2 of 24, BUN of 5, creatinine 0.8, glucose 258, EGFR 91. ProBNP on admission, slightly elevated at 1058. Troponin less than 0.06. INR 1.2. Alcohol level less than 10 on admission. Drug screen positive for opiates. Hemoglobin and hematocrit of 9 and 27, white count 9400, MCV is elevated. MCH and MCHC are normal. Platelet count 103,000. Influenza screen is negative. Arterial blood gases on admission revealed a pH 7.47, pCO2 of 30, pO2 of 63 while on 6 liters nasal cannula. Chest x-ray reveals bilateral diffuse infiltrates and small effusions. A CTA of the chest performed, also revealed hdok-rc-gloppmti effusions bilaterally, diffuse ground glass opacities throughout all lung bhatia. There are some air bronchograms. No mass effect. Reviewing records, the patient had undergone a 2D echocardiogram in 07/2013. That study did not reveal any significant abnormalities with an EF of 55-60%, right ventricular and right atrial size was normal, as was the left atrial chamber. No evidence of hypokinesis. Pulmonary artery pressures were not elevated. [address] [place] [address] CONSULTATION Name: AMANDA ROGERS Room: [address] IN M.R.#: [id number] Admission: 03/13/18 Attend Phys: Roge Davis MD Discharge: Date of : 63 Report #: [id number] ASSESSMENT: 1. Acute respiratory insufficiency/failure. 2. Severe hypoxemic respiratory failure. 3. Hepatic cirrhosis. 4. Prior history of tobacco abuse, probably a component of underlying chronic obstructive pulmonary disease. 5. Chronic pancreatic disease. 6. Diabetes. 7. History of hypertension. 8. Seizure disorder. RECOMMENDATIONS: Continue with antibiotic therapy. Initiate aspiration precautions. Repeat arterial blood gas. Efforts will be made to maintain O2 saturation above 90%. She may require BiPAP and eventually she may even require intubation and ventilator support, but since she is not in a great deal of distress at this time, we will hopefully be able to dodge that. Aerosol treatments are initiated, and we will continue that for the time being. Approximately 35 minutes spent conducting this critical care note. <ELECTRONICALLY SIGNED> By: Shanda Rosado MD 03/15/18 0839 0917 [id number] Neves MD /nt
--- NOTE | 2018-03-15 09:21 | NUR ---
PATIENT ABLE TO BRIEFLY TOLERATE OFF BIPAP ON 15L HFNC FOR BREAKFAST. WAS ABLE TO TAKE PO MEDICATIONS AND EAT 75% OF MEAL. PATIENT DID BEGIN TO DESATURATE INTO THE 70S AROUND 30 MINUTES AFTER BEING OFF THE BIPAP AND IT WAS PLACED BACK ON. PER PULMONARY, SECOND DOSE OF IV LASIX SCHEDULED FOR THIS AFTERNOON.
--- NOTE | 2018-03-15 10:45 | NUR ---
PATIENT WAS ABLE TO TRANSFER VERY WELL TO COMMODE WITH BIPAP ON TO HAVE LARGE BROWN BOWEL MOVEMENT. PATIENT DID STATE UPON TRANSFERING BACK TO BED, SHE DID GET MILDLY WINDED, BUT FEELS BETTER NOW. O2 SAT 95% ON BIPAP WITH FIO2 TITRATED DOWN TO 60% BY RT.
--- NOTE | 2018-03-15 13:39 | NUR ---
PATIENT ABLE TO TOLERATE COMING OFF BIPAP FOR 30 MINUTES FOR LUNCH, BUT AGAIN BEGAN TO DESATURATE INTO 70S SO BIPAP PLACED BACK ON AT FIO2 60%. PATIENT TOLERATES BIPAP WELL. WAS ABLE TO EAT 100% OF LUNCH.
--- NOTE | 2018-03-15 17:28 | NUR ---
PATIENT MAKING SMALL STEPS TOWARDS GOALS. ABLE TO TAKE THE BIPAP OFF FOR MEALS, BUT CONTINUES TO REQUIRE IT IN BETWEEN MEALS CONTINUOUSLY.
[2018-03-16] VITALS (9 sets, daily range): BP systolic 148–177; BP diastolic 78–98
[2018-03-16 01:57] LABS: ABSOLUTE LYMPHOCYTES 0.8 thou/uL (0.8-5.3); ABSOLUTE MONOCYTES 0.5 thou/uL (0.0-1.2); ABSOLUTE NEUTROPHILS 8.8 thou/uL (1.6-8.1); BASOPHILS 0.2 %; HEMATOCRIT 30.6 % (37.0-47.0); HEMOGLOBIN 9.8 gm/dL (12.0-15.0); MCH 32.9 pg (26.0-34.0); MCHC 32.2 g/dL (28.0-37.0); MCV 102.2 fL (80.0-100.0); MONOCYTES 4.8 %; MPV 9.5 fl. (7.2-11.1); NUCLEATED RBCS 0 /100WBC; PLATELET COUNT* 152 thou/uL (150-400); RBC 2.99 mil/uL (4.20-5.00); RDW-CV 15.6 % (10.5-14.5); WBC 10.1 thou/uL (4.0-11.0)
[2018-03-16 02:24] LABS: ALBUMIN 1.6 g/dL (3.4-5.0); CALCIUM 7.6 mg/dL (8.5-10.1); CREATININE 0.9 mg/dL (0.6-1.3); POTASSIUM 3.7 mmol/L (3.5-5.1); TOTAL BILIRUBIN 0.4 mg/dL (<0.1-1.0); TOTAL PROTEIN 6.3 g/dL (6.4-8.2)
[2018-03-16 02:49] LABS: MAGNESIUM 1.6 mg/dL (1.8-2.4)
--- NOTE | 2018-03-16 05:25 | NUR ---
PATIENT PROGRESSING TOWARDS GOALS. HAS SLEPT MOST OF THE NIGHT WITH BIPAP IN PLACE. TITRATED FIO2 DOWN PT DOING WELL HOLDING O2 LEVELS WITHIN RANGE. ABLE TO GET OUT OF BED ON COMMODE WITH STANDBY. PT DID BECOME SOA FOR A COUPLE MIN BUT KEPT O2 UP. BLOOD SUGARS DROPPED THIS A.M 39 PROTOCOL FOLLOWED PT CAME UP TO 140. COMPLAINED OF PAIN TO UPPER RIGHT RIBS REPOSITIONED AND MEDICATION GIVEN, PAIN WAS DECREASED. NO FURTHER CONCERNS AT THIS TIME. BED TO LOWEST POSITION. CALL LIGHT IN PLACE. WILL CONTINUE TO MONITOR.
--- NOTE | 2018-03-16 08:57 | NUR ---
PT GOT UP TO BSC. RETURNED TO BED AND ASKED FOR ORANGE JUICE AND STATED "SOMETHING IS UP WITH MY DIABETES". BLOOD GLUCOSE 39. PT GIVEN 240ML OF ORANGE JUICE AND ONE CUP OF CHOCOLATE PUDDING. BLOOD GLUCOSE 44. ADDITIONAL. FOOD GIVEN. WILL CONTINUE TO MONITOR.
--- NOTE | 2018-03-16 10:48 | NUR ---
PT TAKEN OFF BIPAP AND PUT ON NON REBREATHER. PT SATTING >95% ON NRB. PT PLACED ON 15L HI FLOW NC. PT SLOWLY CAME DOWN TO 80'S AND UNABLE TO SUSTAIN OXYGEN SATURATION IN 90'S. PT PLACED BACK ON NON REBREATHER AND SATTING 98-100%. PT SLEEPING AND SATTING 100%. WILL CONTINUE PLAN OF CARE.
--- NOTE | 2018-03-16 13:06 | NUR ---
PT TITRATED TO VENTI MASK AT 50%. PT DESATTING TO 80'S AND UNABLE TO MAINTAIN OXYGEN SATURATION >92. NON REBREATHER PLACE BACK ON PT.
--- NOTE | 2018-03-16 14:54 | NUR ---
PT MADE TELEMETRY STATUS. ALL BELONGINGS PACKED UP AND SENT WITH PATIENT.
--- NOTE | 2018-03-16 15:12 | NUR ---
RECEIVED REPORT FROM DANIELLE AND ASSUMED CARE OF PT @ 8249.PT IS A/O,VSS,TRACING SR ON THE MONITOR.THIS NURSE ASSESSED PT AND PREVIOUS NURSE CHARTING AND AGREES.PT IS CALM AND COOPERATIVE WITH NO C/O PAIN AT TIME OF ASSESSMENT.PT LEFT RESTING IN BED WITH CALL LIGHT AND FALL PRECAUTIONS IN PLACE.WILL CONTINUE TO MONITOR.
--- NOTE | 2018-03-16 17:59 | NUR ---
VSS,CARDIAC MONITORING IN PLACE WITH NO CHANGES THIS SHIFT.PT REMAINS ON NON-REBREATHER MASK WITH BIPAP AT NIGHT.PT PROGRESSING TOWARDS GOALS.PAIN MANAGED WELL WITH PO MEDICATIONS.IV PATENT AND SALINE LOCKED.PT INOFRMED OF PLAN OF CARE AND COMMUNICATES UNDERSTANDING.PT IS UP WITH ONE TO BSC.SINDHU SECURE AND PATENT.HOURLY ROUNDING COMPLETED FOR PT SAFETY.CALL LIGHT AND FALL PRECAUTIONS IN PLACE.WILL CONTINUE TO MONITOR FOR DURATION OF SHIFT.
[2018-03-16 19:00] LABS: ABSOLUTE MONOCYTES 0.2 thou/uL (0.0-1.2); ABSOLUTE NEUTROPHILS 7.6 thou/uL (1.6-8.1); BASOPHILS 0.5 %; EOSINOPHILS 0.4 %; HEMATOCRIT 31.8 % (37.0-47.0); HEMOGLOBIN 10.2 gm/dL (12.0-15.0); MCH 32.4 pg (26.0-34.0); MCHC 32.1 g/dL (28.0-37.0); MCV 100.8 fL (80.0-100.0); MONOCYTES 2.5 %; MPV 9.6 fl. (7.2-11.1); NUCLEATED RBCS 0 /100WBC; PLATELET COUNT* 169 thou/uL (150-400); POLYS 85.6 %; RBC 3.15 mil/uL (4.20-5.00); RDW-CV 15.1 % (10.5-14.5); WBC 8.9 thou/uL (4.0-11.0)
[2018-03-16 19:07] LABS: CALCIUM 7.4 mg/dL (8.5-10.1); CREATININE 0.9 mg/dL (0.6-1.3)
[2018-03-16 19:11] LABS: ALBUMIN 1.6 g/dL (3.4-5.0); TOTAL BILIRUBIN 0.4 mg/dL (<0.1-1.0); TOTAL PROTEIN 6.3 g/dL (6.4-8.2)
[2018-03-16 19:31] LABS: BE 5.3 mmol/L (-2 to +3); HCO3 28.9 mmol/L (22.0-26.0); PCO2 38.3 mmHg (35.0-45.0); pH 7.495 (7.340-7.450)
[2018-03-16 19:34] LABS: PO2 52.1 mmHg (75.0-100.0)
--- NOTE | 2018-03-16 22:00 | NUR ---
At 1999 received order to transfer patient to ICU 3.
[2018-03-17] VITALS (13 sets, daily range): BP systolic 110–162; BP diastolic 56–89
--- NOTE | 2018-03-17 05:26 | NUR ---
PT. PROGRESSING TOWARDS GOALS. HAS MAINTAINED ADEQUATE OXYGENATION ON BIPAP, TOLERATED WELL. BOTH IV'S NOT WORKING WHEN PT. ARRIVED FROM TELEMETRY UNIT, IV'S DC'D, NEW IV STARTED IN LEFT WRIST. PT. HAS SLEPT WELL THROUGHOUT SHIFT. NO COMPLAINTS OF PAIN, CALL LIGHT IN REACH, WILL CONTINUE TO MONITOR.
--- NOTE | 2018-03-17 18:13 | NUR ---
PT CARE ASSUMED AFTER REPORT. SR ON MONITOR. O2 PER NRB. SEVERAL ATTEMPTS BY RT TODAY TO REMOVE NRB, BUT PT DID NOT TOLERATED WELL. PT DESATS INTO THE LOW 70'S WITH OUT NRB. SINDHU TO CONNIE. DENIED NEED FOR PAIN MEDICATION. FALL PRECAUTIONS IN PLACE. PT NOT PROGRESSING TOWARDS GOALS.
[2018-03-18] VITALS (16 sets, daily range): BP systolic 116–165; BP diastolic 42–78
--- NOTE | 2018-03-18 05:21 | NUR ---
PT. PROGRESSING TOWARDS GOALS. BATH GIVEN THIS A.M. PT. IS NOW ON HI-CAMMIE NASAL CANNULA, TOLERATING WELL. NEW IV STARTED IN RIGHT UPPER ARM. CALL LIGHT IN REACH, WILL CONTINUE TO MONITOR.
[2018-03-18 09:35] LABS: BE 7.1 mmol/L (-2 to +3); HCO3 30.6 mmol/L (22.0-26.0); PCO2 39.3 mmHg (35.0-45.0); pH 7.509 (7.340-7.450)
[2018-03-18 09:39] LABS: PO2 54.4 mmHg (75.0-100.0)
--- NOTE | 2018-03-18 11:00 | NUR ---
PT.WAS MADE TELE STATUS ON 03/16. WENT TO TELE UNIT FOR APPROX.5 HRS BUT TRANSFERRED BACK TO ICU DUE TO RESP.DISTRESS. THEY ARE TRYING TO TITRATE HER TO HFC FROM NRB MASK. CM SAW HER THIS AM. SHE HAD NO QUESTIONS AT THIS TIME.
--- NOTE | 2018-03-18 18:54 | NUR ---
PT ASSESSMENT CHARTED. VSS THROUGHOUT THE SHIFT. UP TO BEDSIDE COMMODE X2 WITH O2 DESAT TO THE 60'S. UNABLE TO TITRATE OFF OF NON-REBREATHER MASK. PT UP TO CHAIR WITH PT WITHOUT ANY DIFFICULTY. PAIN RATED 8-10 THROUGHOUT THE DAY FOR RIB PAIN PARTIALLY RELIEVED WITH PRN PAIN MEDICATION. NO OTHER COMPLAINTS THROUGHOUT THE SHIFT.
[2018-03-19] VITALS (10 sets, daily range): BP systolic 107–167; BP diastolic 47–80
[2018-03-19 04:26] LABS: HEMATOCRIT 31.1 % (37.0-47.0); MCH 32.5 pg (26.0-34.0); MCHC 32.2 g/dL (28.0-37.0); MPV 9.7 fl. (7.2-11.1); RBC 3.08 mil/uL (4.20-5.00); RDW-CV 14.7 % (10.5-14.5); WBC 8.5 thou/uL (4.0-11.0)
[2018-03-19 05:01] LABS: ALBUMIN 1.6 g/dL (3.4-5.0); CALCIUM 7.8 mg/dL (8.5-10.1); CREATININE 0.7 mg/dL (0.6-1.3); MAGNESIUM 1.7 mg/dL (1.8-2.4); POTASSIUM 4.3 mmol/L (3.5-5.1); TOTAL BILIRUBIN 0.4 mg/dL (<0.1-1.0); TOTAL PROTEIN 6.2 g/dL (6.4-8.2)
--- NOTE | 2018-03-19 07:34 | NUR ---
Pt pleasant and cooperative. On 15L O2 per NRB mask during waking hours, then on BIPAP overnight. Pt desats on 15L per HFC, but uses HFC and NRB mask when eating. VSS. Up to BSC last night for BM per pt request. Afterward pt requested pain medication for abd pain. Pt appeared to be asleep when pain reassessed afterward. Will continue to monitor.
--- NOTE | 2018-03-19 10:01 | NUR ---
6427 ASSUMED CARE OF PATIENT. PLEASE SEE DOCUMENTED ASSESSMENT. PT DENIES PAIN OR NEEDS AT THIS TIME. PT IS TELE STATUS IN THE ICU
--- NOTE | 2018-03-19 10:17 | NUR ---
PATIENT TO MOVE TO ROOM 203
--- NOTE | 2018-03-19 11:06 | NUR ---
REPORT TO PB KELLEY
--- NOTE | 2018-03-19 12:42 | NUR ---
PT TRANSFERRED TO ROOM 203. ORIENTED TO ROOM AND UNIT. BED LOW AND LOCKED, SIDE RAILS UP X3, CALL LIGHT IN REACH. PT REMAINS ON 15L NRB. WILL CONTINUE TO ASSESS.
--- NOTE | 2018-03-19 18:43 | NUR ---
PT'S BLOOD GLUCOSE HIGH THIS EVENENING. CONTACT DR. TINOCO AND OBTAIN ORDERS. FOUND PT DRINKING A&W ROOTBEER IN ROOM. INSTRUCTED PT THAT SHE NEEDS TO DRINK DIET SODA. IN RESPONSE PT SMILED AND LAUGHED. WILL CONTINUE TO ASSESS.
--- NOTE | 2018-03-19 18:47 | NUR ---
ALSO FOUND EMPTY MCDONALDS BAGS IN PT'S WASTE BASKET. INSTRUCT PT TO ONLY EAT THE DIET THAT THE HOSPITAL HAS PROVIDED FOR HER.
--- NOTE | 2018-03-19 19:07 | NUR ---
INFORM DR TINOCO OF MY FINDINGS OF ALL THE FOOD AND SUGARY DRINKS IN PT'S ROOM. INSTRUCTED TO HAV CREATIVE ART THERAPIST CHECK BLOOD GLUCOSE EVERY 4 HRS.
[2018-03-20] VITALS: BP 125/62
[2018-03-20 04:00] VITALS: BP 145/69
--- NOTE | 2018-03-20 04:39 | NUR ---
ASSUMED PT CARE AT 1930. NURSING ASSESSMENT COMPLETED. CAFE WORKER IN PLACE, TRACING SINUS RHYTHM. PT ON 15L VIA NON REBREATHER MASK. PT PLACED ON BIPAP THIS SHIFT BY RT. FALL PRECAUTIONS IN PLACE, CALL LIGHT WITHIN REACH.
[2018-03-20 05:30] LABS: HEMATOCRIT 30.3 % (37.0-47.0); HEMOGLOBIN 9.9 gm/dL (12.0-15.0); MCH 32.8 pg (26.0-34.0); MCHC 32.8 g/dL (28.0-37.0); MCV 99.9 fL (80.0-100.0); MPV 9.5 fl. (7.2-11.1); RBC 3.03 mil/uL (4.20-5.00); RDW-CV 14.9 % (10.5-14.5); WBC 9.4 thou/uL (4.0-11.0)
[2018-03-20 06:03] LABS: ALBUMIN 1.6 g/dL (3.4-5.0); CALCIUM 8.3 mg/dL (8.5-10.1); CREATININE 0.6 mg/dL (0.6-1.3); POTASSIUM 4.1 mmol/L (3.5-5.1); TOTAL BILIRUBIN 0.3 mg/dL (<0.1-1.0); TOTAL PROTEIN 6.1 g/dL (6.4-8.2)
[2018-03-20 08:35] LABS: HCO3 30.1 mmol/L (22.0-26.0); PCO2 47.2 mmHg (35.0-45.0); PO2 113.5 mmHg (75.0-100.0); pH 7.423 (7.340-7.450)
[2018-03-20 08:42] VITALS: BP 146/70
[2018-03-20 12:12] VITALS: BP 121/61
--- NOTE | 2018-03-20 12:33 | NUR ---
ASSUMED PT CARE AT 0700 PT C/O PAIN GAVE PT PAIN MEDS PT DENIES SOA ON 15L/NON REBREATHER TALKED WITH PULMONOLOGY WHO ORDERED TO SWITCH PT TO HIFLOW NASAL CANNULA AT 10L THIS NURSE SWITCHED PT REASSESSED O2 WHICH PT IS SAT ABOVE 90 NO SIGNS OF DISTRESS SOA NOTED, PT IS UP WITH SBA PT IS A FALL RISK BED ALARM IS ON, PT HAS MANLEY WHICH NO INDICATION FOR PER PROTOCOL MANLEY WAS REMOVED, PT IS SR ON THE MONITOR, WILL CONTINUE TO MONITOR
[2018-03-20 15:52] VITALS: BP 126/56
[2018-03-21] VITALS: BP 155/82
[2018-03-21 04:00] VITALS: BP 155/76
--- NOTE | 2018-03-21 04:51 | NUR ---
ASSUMED PT CARE AT 1930. NURSING ASSESSMENT COMPLETED. PT ON EPIC BEACON SPECIALISTS, TRACING SINUS RHYTHM. VOICED NO CONCERNS THIS SHIFT. PT CONTINUES ON 11L VIA HIGH FLOW NC. HOURLY ROUNDING COMPLETED, HIGH FALL PRECAUTIONS IN PLACE, CALL LIGHT WITHIN REACH.
[2018-03-21 05:00] LABS: HEMATOCRIT 28.7 % (37.0-47.0); HEMOGLOBIN 9.5 gm/dL (12.0-15.0); MCH 32.7 pg (26.0-34.0); MCHC 33.1 g/dL (28.0-37.0); MCV 98.7 fL (80.0-100.0); MPV 9.4 fl. (7.2-11.1); NUCLEATED RBCS 0 /100WBC; PLATELET COUNT* 205 thou/uL (150-400)
[2018-03-21 05:04] LABS: ALBUMIN 1.6 g/dL (3.4-5.0); CALCIUM 8.1 mg/dL (8.5-10.1); CREATININE 0.7 mg/dL (0.6-1.3); POTASSIUM 4.3 mmol/L (3.5-5.1); TOTAL BILIRUBIN 0.4 mg/dL (<0.1-1.0)
[2018-03-21 06:55] LABS: ABSOLUTE LYMPHOCYTES 0.7 thou/uL (0.8-5.3); ABSOLUTE MONOCYTES 0.4 thou/uL (0.0-1.2); ABSOLUTE NEUTROPHILS 8.9 thou/uL (1.6-8.1); ANISOCYTOSIS 1+; PLATELET ESTIMATE ADEQUATE; POIKILOCYTOSIS 1+
[2018-03-21 08:41] VITALS: BP 149/75
--- NOTE | 2018-03-21 09:13 | NUR ---
ASSUMED CARE OF PT AROUND 0730 THIS AM. REFER TO ASSESSMENT. PT VOICES DESIRE TO INCREASE STRENGTH. ENCOURAGED PT TO WORK WITH PHYSICAL THERAPY AND OCCUPATIONAL THERAPY WELL WE COULD WALK IN THE [place] IF TOLERATED LATER TODAY. PT AGREES WITH PLAN OF CARE. UNABLE TO TITRATE OXYGEN FROM 12L AT THIS TIME D/T SATS AROUND 92-93%. WILL CONTINUE TO ASSESS FOR ABILITY TO TITRATE OXYGEN. NO OTHER CONCERNS AT THIS TIME. CLWR. WCTM.
[2018-03-21 11:47] VITALS: BP 133/65
[2018-03-21 15:30] VITALS: BP 134/64
--- NOTE | 2018-03-21 18:24 | NUR ---
PT SOMEWHAT PROGRESSING TOWARDS GOALS THIS SHIFT. PARTICIPATED WITH THERAPY'S. PT UP TO CHAIR FOR MEALS AND TOLERATED. AMBULATING TO BR TO VOID. RT ABLE TO TITRATE OXYGEN TO 10L /HFNC THIS SHIFT. NO OTHER CONCERNS AT THIS TIME. CLWR. WCTM.
[2018-03-21 21:20] VITALS: BP 119/53
[2018-03-22] VITALS: BP 143/72
[2018-03-22 04:00] VITALS: BP 164/81
--- NOTE | 2018-03-22 04:26 | NUR ---
PT AAOX4 RESP REG AND UNALBORED SKIN W/D. AT BEGINNING OF SHIFT PT ON HIGH FLOW O2 @ 10L BNC AND O2 SAT WAS 81%, INCREASED O2 TO 15L AND O2 SAT INCREASED TO 85%. RT NOTIFIED AND PT PLACED BACK ON HER BIPAP. TELEMETRY PACK INTACT WITH ALARMS SET. VSS AND NO ACUTE CAHNGES DURING SHIFT. WILL CONTINUE TO MONITOR.
[2018-03-22 04:30] LABS: ABSOLUTE LYMPHOCYTES 1.2 thou/uL (0.8-5.3); ABSOLUTE MONOCYTES 0.3 thou/uL (0.0-1.2); BASOPHILS 0.4 %; EOSINOPHILS 0.4 %; HEMATOCRIT 29.5 % (37.0-47.0); HEMOGLOBIN 9.8 gm/dL (12.0-15.0); MCH 33.3 pg (26.0-34.0); MCHC 33.4 g/dL (28.0-37.0); MCV 99.7 fL (80.0-100.0); MONOCYTES 3.1 %; MPV 9.7 fl. (7.2-11.1); NUCLEATED RBCS 0 /100WBC; PLATELET COUNT* 207 thou/uL (150-400); POLYS 85.1 %; RBC 2.95 mil/uL (4.20-5.00); RDW-CV 15.2 % (10.5-14.5); WBC 10.6 thou/uL (4.0-11.0)
[2018-03-22 04:49] LABS: ALBUMIN 1.7 g/dL (3.4-5.0); CALCIUM 8.1 mg/dL (8.5-10.1); CREATININE 0.6 mg/dL (0.6-1.3); POTASSIUM 3.9 mmol/L (3.5-5.1); TOTAL BILIRUBIN 0.3 mg/dL (<0.1-1.0); TOTAL PROTEIN 6.2 g/dL (6.4-8.2)
[2018-03-22 04:51] LABS: PREALBUMIN 15.2 mg/dL (18.0-35.7)
[2018-03-22 08:00] VITALS: BP 148/64
[2018-03-22 12:03] VITALS: BP 143/74
[2018-03-22 15:55] VITALS: BP 100/74
--- NOTE | 2018-03-22 16:00 | NUR ---
ASSUMED CARE OF PT AT 0730. PT RESTING IN BED. BIPAP IN PLACE- SAT 97%. PT PLACED ON HIGH FLOW NC 15L DURING MEALS- SAT RIGHT AROUND 90-91%. PT A&0X4, COMPLAINS OF PAIN TO ABDOMEN-TREATED WITH PRN PAIN MEDICATION WITH PARTIAL RELIEF. PT TRACING SR ON THE SHALE PLANER OPERATOR HELPER. PT UP WITH 1 ASSIST AND WALKER TO [facility] PT GOAL FOR TODAY IS MAINTAIN OXYGEN SAT ABOVE 95% AND PAIN MGMT, AM ASSESSMENT CHARTED. MEDICATIONS PER AUG. PT REPOSITIONS SELF. HOURLY ROUNDING OSBERVED. BED IN LOW POSITION. CALL LIGHT WITHIN REACH. WILL CONTINUE PLAN OF CARE.
--- NOTE | 2018-03-22 18:04 | NUR ---
NO ACUTE CHANGES THROUGHOUT SHIFT. REFER TO CHARTING. PT OFF AND ON BIPAP THROUGHOUT SHIFT. PT ON 15 L HIGHFLOW NC DURING MEALS. PT COMPLAINS OF PAIN TO ABDOMEN. TREATED WITH PRN OXYCODONE WITH PARTIAL RELIEF. PT NOT PROGRESSING TOWARDS GOALS. ADDITIONAL LASIX ORDERED THIS EVENING. REFER TO EMAR. CONTINUES TO TRACE SR ON THE VIDEO GAME DEVELOPER. MEDICATIONS PER AUG. PT REPOSITIONS SELF. HOURLY ROUNDING OBSERVED. BED IN LOW POSITION. CALL LIGHT WITHIN REACH. WILL CONTINUE PLAN OF CARE.
[2018-03-22 20:00] VITALS: BP 138/61
[2018-03-23] VITALS: BP 140/79
[2018-03-23 04:00] VITALS: BP 176/90
[2018-03-23 06:46] LABS: CALCIUM 8.3 mg/dL (8.5-10.1); CREATININE 0.8 mg/dL (0.6-1.3); POTASSIUM 3.1 mmol/L (3.5-5.1)
--- NOTE | 2018-03-23 07:00 | NUR ---
ASSUMED CARE OF PATIENT AT 1900 THE PATIENT REMAINS IN SR ON THE TELEMONITOR O2 SAT IS MAINTAINED ON BIPAP DURING NIGHT ORDERED THE PATIENT CONTINUES TO GET UP WITH ASSIST X 1 TO THE BSC ROUTINE ET PRN INTERVENTIONS CONTINUE TO BE EFFECTIVE FOR SX MANAGEMENT PAIN CONTROL PATIENT CONTINUES TO PROGRESS TOWARDS GOALS SAFETY INTERVENTIONS CONTINUE BED LOWERED WHEELS LOCKED SIDE RAILS UP X 2 CALL LIGHT IN REACH REPORT TO BE GIVEN TO ONCOMING WARREN
[2018-03-23 08:00] VITALS: BP 126/63
--- NOTE | 2018-03-23 10:23 | NUR ---
ASSUMED CARE OF PT AT 0730. PT RESTING IN BED WAITING FOR BREAKFAST. PT ON BIPAP UPON AM ASSESSMENT- PT PLACED ON 15 LITERS HIGH FLOW NC SAT 92%. PT A&0X4, COMPLAINS OF PAIN TO ABDOMEN- TREATED WITH PRN TYLENOL WITH RELIEF. PT DENIES ANY SHORTNESS OF BREATH WITH REST- NOTED SHORTNESS OF BREATH WITH ACTIVITY. PT TRACING SR ON THE CHEF DE PARTIE. PT UP WITH 1 WALKER TO BATHROOM. PULMONARY HERE TO SEE PT. ORDERS RECEIVED FOR ABG'S IN AM. PT GOAL FOR TODAY IS TO TITRATE OXYGEN, MAINTAIN SATURATION ABOVE 91%, REPLACE POTASSIUM PER ELECTROLYTE PROTOCOL-3.1 THIS AM AND PAIN MGMT, AM ASSESSMENT CHARTED. MEDICATIONS PER AUG. PT REPOSITIONS SELF. HOURLY ROUNDING OBSERVED. BED IN LOW POSITION. CALL LIGHT WITHIN REACH. WILL CONTINUE PLAN OF CARE.
[2018-03-23 11:35] VITALS: BP 145/73
[2018-03-23 16:00] VITALS: BP 131/65; BP 142/69
--- NOTE | 2018-03-23 18:16 | NUR ---
NO ACUTE CHANGES THROUGHOUT SHIFT. REFER TO CHARTING. PT SLOWLY PROGRESSING TOWARDS GOALS. PT TITRATED TO 8 LITERS HIGH FLOW NC SAT 93%. PT UP TO RECLINER MULTIPLE TIMES TODAY. TOLERATING WELL. POTASSIUM BEING REPLACED PER ELECTROLYTE PROTOCOL. AT BEDSIDE THIS AFTERNOON. CONTINUES TO TRACE SR ON THE BOX OFFICE CLERK. PT UP WITH 1 ASSIST AND WALKER. MEDICATIONS PER AUG. PT REPOSITIONS SELF. HOURLY ROUNDING OBSERVED. BED IN LOW POSITION. CALL LIGHT WITHIN REACH. WILL CONTINUE PLAN OF CARE.
[2018-03-23 20:00] VITALS: BP 147/70
[2018-03-24] VITALS: BP 132/74
--- NOTE | 2018-03-24 03:48 | NUR ---
ASSUMED PT CARE AT 1915 REPORT RECEIVED FROM NURSE. PT IS ALERT AWAKE ORIENTED X4. SHE IS SINUS RYTHM ON THE HEAD SCHOOL CUSTODIAN. IV LINE IS PATENT. COMPLAINS OF PAIN , PAIN MED GIVEN ORDERED. PT ALSO RECEIVED SOME SLEEPING PILL BEOFRE BED TIME. ON O2 NC 10 L HIGH FLOW. HER SATURATION IS 90% ON 10 L NC. RESPITATORY RECORDS HER SATURATION EARLIER TO BE 97 % ON 10 L NC. PT UP TO THE BEDSIDE COMMODDE WITH ASSIST ONE. SHE IS UNSTEADY ON HER FEETS, SO SHE IS AT FALL RISK. WILL CONTINUE TO MONITOR.
[2018-03-24 04:00] VITALS: BP 161/72
--- NOTE | 2018-03-24 05:04 | NUR ---
PT WEARS BIPAP ALL NIGHT LONG. THIS MORNING, PT TOLD LAB PERSONEL THAT SHE WAS FEELING LOW ( REFERRRING TO HER BS) ACCUCHECK MEASURED. RESULT SHOWS " LOW BELOW 29". PT FED WITH ORANGE JUICE, CRAKERS, AND PEANUT BUTTER. ACCUCHECK WILL BE RECHECKED IN 30 MINUTE. AWATING WOR LAB RESULTS WHICH WERE ALREADY DRAWNED. WILL PROCEED WITH D50 IF BS STILL BELOW NORMAL AFTER SECOND DRAW. PT REMAINS ASYMPTOMATIC BESIDES WEAK UPPER EXTREMITIES STRENGTH. PT SAYS THAT THIS IS A RECURRENT MORNING SITUATION. WILL CONTINUE MONITORING .
[2018-03-24 05:22] LABS: CALCIUM 8.3 mg/dL (8.5-10.1); CREATININE 0.7 mg/dL (0.6-1.3); POTASSIUM 3.3 mmol/L (3.5-5.1)
--- NOTE | 2018-03-24 05:45 | NUR ---
LAB RESULT WAS SUGAR WAS 33 PRIOR TO FEEDING PT. BS RECHECKED AT 0540. RESULT 79. PT SAYS SHE FEEL SA LITTLE TIRED. WILL PASS ON COMMNENT AND NEED TO MONITOR SUGAR LEVEL TO DAY SHIFT NURSE. WAS MADE AWARE OF CRITICAL LAB RESULT FOR SUGAR . NO ORDER RECEIVED.
[2018-03-24 06:52] LABS: BE 2.9 mmol/L (-2 to +3); HCO3 27.4 mmol/L (22.0-26.0); PCO2 41.7 mmHg (35.0-45.0); PO2 63.1 mmHg (75.0-100.0); pH 7.436 (7.340-7.450)
[2018-03-24 08:00] VITALS: BP 123/54
--- NOTE | 2018-03-24 09:00 | NUR ---
ASSUMED CARE OF PT AT 0730. PT RESTING IN BED WAITING FOR BREAKFAST. PT A&0X4, COMPLAINS OF PAIN TO ABDOMEN, TREATED WITH PRN TYLENOL WITH PARTIAL RELIEF. PT ON 10 L HIGH FLOW NC SAT ABOVE 90%. PT TRACING SR ON THE PATHOLOGY SECRETARY/TRANSCRIPTIONIST. PT UP WITH 1 WALKER TO BATHROOM. PT UP TO CHAIR THIS MORNING FOR BREAKFAST. PT GOAL FOR TODAY IS TO GET UP TO CHAIR FOR MEALS, TITRATE OXYGEN AND REPLACE POTASSIUM. AM ASSESSMENT CHARTED. MEDICATIONS PER AUG. PT REPOSITIONS SELF. HOURLY ROUNDING OBSERVED. BED IN LOW POSITION. CALL LIGHT WITHIN REACH. WILL CONTINUE PLAN OF CARE.
[2018-03-24 12:00] VITALS: BP 136/59
[2018-03-24 15:51] VITALS: BP 144/74
--- NOTE | 2018-03-24 17:35 | NUR ---
AT APPROXIMATELY 1700, PT HAD COUGHING SPELL. PT SHORT OF BREATH AND SAT IN THE 70'S. PT PLACED ON BIPAP FOR A SHORT PERIOD OF TIME-20 MINUTES. DINNER ARRIVED AND PT REQUESTING TO COME OFF BIPAP TO EAT. PT PLACED ON 10L HIGH FLOW NC SAT 94%. PT DENIES ANY SHORTNESS OF BREATH AT THIS TIME. CONTINUES TO TRACE SR ON THE ELECTROMECHANISMS DESIGN DRAFTER. COMPLAINED OF PAIN THIS AFTERNOON. TREATED WITH PRN OXYCODONE WITH PARTIAL RELIEF. PT UP TO CHAIR MULTIPLE TIMES THROUGHOUT SHIFT. REFER TO CHARTING. POTASSIUM REPLACED PER ELECTROLYTE PROTOCOL. PT SLOWLY PROGRESSING TOWARDS GOALS. MEDICATIONS PER AUG. PT REPOSITIONS SELF. HOURLY ROUNDING OBSERVED. BED IN LOW POSITION. CALL LIGHT WITHIN REACH. WILL CONTINUE PLAN OF CARE.
[2018-03-24 20:00] VITALS: BP 128/56
[2018-03-25] VITALS: BP 144/72
--- NOTE | 2018-03-25 01:57 | NUR ---
PT GOT UP FROM THE BEDSIDE COMMODE AND SIT ON SIDE OF BED. SHE CALLED NURSING STATION AND WHEN GOT IN THE ROOM, PT WAS COUGHING AND SAID SHE COULD NOT CATCH HER BREATH. O2 SAT 66 . NON REBREATHER APPPLIED WITH O2 AT 15 L. ASSIST CALLED IN ROOM. RESPIRATORRY GOT IN IN FEW SECONDS AND GAVE BREATHING TREATMENT. O2 SAT BACK UP TO 95% ABOVE. BIPAP IN PLACE AGAIN . SATURATIONIN 91% ON BIPAP. PT STATES SHE FEELS BETTER. NEW ORDER FOR TESSALON PRN RECEIVED FROM SKEIN MERCERIZING MACHINE OPERATOR. WILL ADMINISTER.
[2018-03-25 04:00] VITALS: BP 145/64
[2018-03-25 05:01] LABS: ABSOLUTE BASOPHILS 0.1 thou/uL (0.0-0.2); ABSOLUTE EOSINOPHILS 0.4 thou/uL (0.0-0.7); ABSOLUTE LYMPHOCYTES 2.7 thou/uL (0.8-5.3); ABSOLUTE MONOCYTES 0.7 thou/uL (0.0-1.2); ABSOLUTE NEUTROPHILS 9.5 thou/uL (1.6-8.1); BASOPHILS 0.9 %; EOSINOPHILS 2.9 %; HEMATOCRIT 28.7 % (37.0-47.0); HEMOGLOBIN 9.4 gm/dL (12.0-15.0); LYMPHOCYTES 20.1 %; MCH 32.3 pg (26.0-34.0); MCHC 32.7 g/dL (28.0-37.0); MCV 98.7 fL (80.0-100.0); MONOCYTES 4.9 %; MPV 9.3 fl. (7.2-11.1); NUCLEATED RBCS 0 /100WBC; PLATELET COUNT* 233 thou/uL (150-400); POLYS 71.2 %; RBC 2.91 mil/uL (4.20-5.00); RDW-CV 14.7 % (10.5-14.5); WBC 13.3 thou/uL (4.0-11.0)
--- NOTE | 2018-03-25 05:38 | NUR ---
PT IS ALERT AWAKE ORIENTED X4. SINUS RYTHM ON WOUND SPECIALIST. SHE COMPLAINS OF PAIN THROUGHOUT THE NIGHT AND RECEIVED SOME PAIN PILL ORDERED. SHE STAYS IN BED AND GETS UP TO THE BEDSIDE COMMODE NEEDED. SHE HAS A HUGE BOWEL MOVEMNENT LIGHT BROWN IN COLOR, FORMED. SHE RECEIVED HER COUGH PILL THIS MORNING ALONG WITH HER OTHER ORDERED PILLS. PT IV LINE IN PATENT. DENIES ANY WEAKNESS THIS MORNING. ON BIPAP PRESENTLY. NO SIGNS OF SOB. WILL CONTINUE TO MONITOR
[2018-03-25 05:58] LABS: ALBUMIN 1.6 g/dL (3.4-5.0); CALCIUM 7.8 mg/dL (8.5-10.1); CREATININE 0.8 mg/dL (0.6-1.3); POTASSIUM 4.1 mmol/L (3.5-5.1); TOTAL BILIRUBIN 0.2 mg/dL (<0.1-1.0); TOTAL PROTEIN 5.5 g/dL (6.4-8.2)
[2018-03-25 08:00] VITALS: BP 111/45
--- NOTE | 2018-03-25 11:07 | NUR ---
CM spoke with Pt regarding disposition. Pt continues to plan to return home with family support and HH, Pt stated that she has used [facility] previously and in agreement with using them again. Pt stated that she would like to have a RW at dc, a shower chair and a commode. Pt also anticipates needing home o2 at dc, Pt continues to be on 8L of o2. CM to begin working on ins auth for DME equipment.
--- NOTE | 2018-03-25 11:53 | NUR ---
RECEIVED REPORT FROM JOHANNE KELLEY. ASSUMED CARE OF PT AROUND O730. PT A&O X4, VSS, O2 SAT 90% ON 8L PER HIGH FLOW CANNULA. ASSEMBLY CLEANER IN PLACE TRACING SR. AM ASSESSMENT AND VITALS COMPLETED CHARTED. IV TO RIGHT WRIST INTACT AND SALINE LOCKED. PT EATING AND DRINKING WITHOUT ISSUE. PT UP TO BEDSIDE COMMODE WITH SBA TO VOID AND HAVE BM THIS AM - VERY SOB WITH EXERTION, O2 SATS DROPPED TO 80'S, O2 INCREASED TO 10L PER HIGH FLOW CANNULA, SATS SLOWY RETURNED TO 92%. WILL ATTEMPT TO TITRATE BACK DOWN TO 8L ABLE. FRIEND VISITING AT BEDSIDE AT THIS TIME. PT REPORTED CHEST SORENESS THIS AM (FROM COUGHING), RECEIVED PO PAIN MEDICATION WITH PARTIAL RELIEF. PT CURRENTLY SITTING UP IN BED. CALL LIGHT IS WITHIN REACH. HOURLY ROUNDING PERFORMED. FALL PRECAUTIONS IN PLACE. WCTM.
[2018-03-25 12:00] VITALS: BP 119/60
[2018-03-25 16:00] VITALS: BP 104/58
--- NOTE | 2018-03-25 18:45 | NUR ---
PT ABLE TO TITRATE BACK DOWN TO 8L PER NC, BUT DID USE BIPAP A COUPLE TIMES THIS SHIFT PRN. PT EATING AND DRINKING WITHOUT ISSUE. PT REPORTED CHEST SORENESS THAT WAS MANAGED WITH PO PAIN MEDICATION WITH PARTIAL RELIEF. FAMILY VISITED THIS EVENING. YOUTH CARE WORKER REMAINS IN PLACE WITH NO CHANGES. FALL PRECAUTIONS IN PLACE. HOURLY ROUNDING PERFORMED. CALL LIGHT IS WITHIN REACH. ALL NEEDS MET AT THIS TIME.
[2018-03-25 20:00] VITALS: BP 121/59
[2018-03-26] VITALS: BP 140/70
[2018-03-26 04:00] VITALS: BP 104/53
--- NOTE | 2018-03-26 04:48 | NUR ---
ASSUMED PT CARE AT 1930. NURSING ASSESSMENT COMPLETED AT START OF SHIFT. PT VOICED NO CONCERNS. PT DESAT TO 60'S AT START OF SHIFT AFTER WALKING TO BATHROOM ON 8L HF NC. PT C/O PAIN, PRN PAIN MEDICATION ADMINISTERED, SEE EMAR FOR DOCUMENTATION. HOURLY ROUNDING COMPLETED. HIGH FALL PRECAUTIONS IN PLACE. CALL LIGHT WITHIN REACH.
[2018-03-26 05:04] LABS: ABSOLUTE BASOPHILS 0.1 thou/uL (0.0-0.2); ABSOLUTE EOSINOPHILS 0.3 thou/uL (0.0-0.7); ABSOLUTE LYMPHOCYTES 2.6 thou/uL (0.8-5.3); ABSOLUTE MONOCYTES 0.8 thou/uL (0.0-1.2); ABSOLUTE NEUTROPHILS 9.1 thou/uL (1.6-8.1); BASOPHILS 0.6 %; EOSINOPHILS 2.4 %; HEMATOCRIT 29.4 % (37.0-47.0); HEMOGLOBIN 9.5 gm/dL (12.0-15.0); LYMPHOCYTES 20.2 %; MCHC 32.4 g/dL (28.0-37.0); MCV 98.9 fL (80.0-100.0); MONOCYTES 5.9 %; MPV 9.9 fl. (7.2-11.1); NUCLEATED RBCS 0 /100WBC; PLATELET COUNT* 219 thou/uL (150-400); POLYS 70.9 %; RBC 2.97 mil/uL (4.20-5.00); RDW-CV 14.7 % (10.5-14.5); WBC 12.9 thou/uL (4.0-11.0)
[2018-03-26 05:31] LABS: ALBUMIN 1.6 g/dL (3.4-5.0); CALCIUM 7.9 mg/dL (8.5-10.1); CREATININE 0.8 mg/dL (0.6-1.3); POTASSIUM 3.4 mmol/L (3.5-5.1); TOTAL BILIRUBIN 0.2 mg/dL (<0.1-1.0); TOTAL PROTEIN 6.1 g/dL (6.4-8.2)
[2018-03-26 05:44] LABS: PREALBUMIN 13.7 mg/dL (18.0-35.7)
--- NOTE | 2018-03-26 10:55 | NUR ---
Spoke with hospitalist, wants to see if Pt will qualify for LTAC. DC supply chain planner to initiate referral to determine LTAC eligibility
--- NOTE | 2018-03-26 11:14 | NUR ---
INSTRUCTED BY DR. VILLANUEVA OT HOLD BP MEDS FOR NOW.
[2018-03-26 11:46] VITALS: BP 111/46
[2018-03-26 12:29] LABS: CALCIUM 7.8 mg/dL (8.5-10.1); CREATININE 0.8 mg/dL (0.6-1.3); INR 1.1; POTASSIUM 3.8 mmol/L (3.5-5.1)
--- NOTE | 2018-03-26 12:46 | NUR ---
VIROLOGY TEACHER SPOKE TO THE PATIENT TO DISCUSS LTAC AT D/C. PATIENT DECLINES, AND STATES 'I WILL ONLY GO HOME, AND I WILL NEED SOME EQUIPMENT WHEN I DO GO HOME'. CM INFORMED THE CM IN-CHARGE OF THE PATIENT OF THIS INFO. CM WILL REMAIN AVAILABLE TO ASSIST AND FOLLOW NEEDED.
[2018-03-26 17:03] VITALS: BP 118/48
--- NOTE | 2018-03-26 18:43 | NUR ---
PT SWITCHED BETWEEN NC AND BIPAP PRN TODAY. COMPLETED CT TO R/O PE WHICH WAS NEGATIVE. CONTINUE TO TRY AND WEAN OXYGEN AND PULMONARY TOILETING.
[2018-03-26 20:00] VITALS: BP 112/55
[2018-03-27] VITALS: BP 125/66
[2018-03-27 03:51] VITALS: BP 125/68
--- NOTE | 2018-03-27 05:23 | NUR ---
ASSUMED PT CARE AT 1930. NURSING ASSESSMENT COMPLETED AT START OF SHIFT. FINAL CLEANER IN PLACE, TRACING SINUS RHYTHM. PT REMAINS ON BIPAP THIS SHIFT. HOURLY ROUNDING COMPLETED. PRN PAIN MEDICATION ADMINISTERED THIS SHIFT. SEE EMAR FOR DOCUMENTATION. CALL LIGHT SHARON CONLEY.
--- NOTE | 2018-03-27 07:45 | NUR ---
ASSUMED CARE OF PT ASSESSED AND DOCUMENTED. PT IS ON CARDIAC MONITER TRACING SR HR 86. VSS WNL. PT IS AFEBRILE. PT HAS A BS OF 30. D50 IV GIVEN AND WAS EFFECTIVE. PT IS ON FALL RISK PRECAUTIONS PER FACILITY PROTOCOL. SHE IS ON HIFLOW CANNULA AT 15 L. BED IS IN LOW POSITION CALL LIGHT IS IN REACH. WM.
[2018-03-27 08:00] VITALS: BP 114/64
--- NOTE | 2018-03-27 09:32 | NUR ---
CALLED LAB REGARDING GREEN SWAB FOR RESPIRATORY PANEL. NEED TO DOCK LOADER AT LAB. SWAB WAS DONE WITH WRONG SWAB.
--- NOTE | 2018-03-27 09:40 | NUR ---
GREEN SWAB OBTAINED FROM LAB. CULTURE TAKEN BACK DOWN TO LAB.
--- NOTE | 2018-03-27 11:48 | NUR ---
CM iniatied transfer to [facility] for an open lung biopsy. Awaiting decision to accept.
[2018-03-27 12:36] VITALS: BP 127/50
--- NOTE | 2018-03-27 12:56 | 2DMMODE ---
[place] [address] 2 D/M-MODE ECHOCARDIOGRAM Name: AMANDA ROGERSBRIDGETTEJudith Room: [address] ADM IN Vero.R.#: [id number] Admission: 03/13/18 Attend Phys: Roge Davis, Discharge: Date of : 63 Date of Service: 03/27/18 1256 Report #: [id number] THIS REPORT FOR: //name// APPROVED REPORT Study performed: 03/27/2018 10:54:32 EXAM: Limited 2D Echocardiogram Patient Location: In-Patient Room #: 203 Status: routine BSA: 1.88 HR: 98 bpm BP: 114/64 mmHg Rhythm: NSR Other Information Study Quality: Good Indications Sepsis RESPIRATORY FAILURE, RE-ASSESS LV FUNCTION Left Ventricle The left ventricle is normal size. There is normal left ventricular wall thickness. The left ventricular systolic function is normal. The left ventricular ejection fraction is within the normal range. LVEF is 60-65%. Right Ventricle The right ventricle is normal size. The right ventricular systolic function is normal. Atria The left atrium size is normal. The right atrium size is normal. Aortic Valve The aortic valve is normal in structure. Mitral Valve The mitral valve is normal in structure. Tricuspid Valve The tricuspid valve is normal in structure. [address] [address] 2 D/M-MODE ECHOCARDIOGRAM Name: AMANDA ROGERS ANDREJudith Room: [address] ADM IN M.R.#: [id number] Admission: 03/13/18 Attend Phys: Roge Davis, Discharge: Date of : 63 Date of Service: 03/27/181255 Report #: [id number] Pulmonic Valve The pulmonary valve is normal in structure. Great Vessels The aortic root is normal in size. Pericardium There is no pericardial effusion. <Conclusion> The left ventricular systolic function is normal. The left ventricular ejection fraction is within the normal range. <ELECTRONICALLY SIGNED> By: Brigido Gutierrez MD, FACC 03/27/186 55 55 Brigido Gutierrez MD, FACC /INF
--- NOTE | 2018-03-27 14:37 | NUR ---
Pt transferring to [facility] to ICU bed 251, under the care of Dr Boyce. Nurse report number is [phone]. Pt updated her family, and informed CM that CM did not need to call any of her family. Ambulance will transport at 245pm. EMTALA form completed, copy on Pt's chart.
--- NOTE | 2018-03-27 14:41 | NUR ---
PT TRANSFERRED TO [facility]. [facility] FIRE DEPT TRNSPORTED PT' ALL BELONGINGS PACKED UP AND LEFT WITH PT. REPORT CALLED IN TO WARREN SANDOVAL AT [facility] PT. PT GOING TO ICU BED 251. D/C'D CARDIAC MONITER.
[2018-03-28 09:08] LABS: GLOMERULR BASEM MEMBRN AB 3 units (0-20)
[2018-03-28 17:09] LABS: ANA INTERPRETATION Negative (())
[2018-03-29 23:12] LABS: ADENOVIRUS Negative (Negative); INFLUENZA A Negative (Negative); INFLUENZA B Negative (Negative); METAPNEUMOVIRUS Negative (Negative); PARAINFLUENZA 1 Negative (Negative); PARAINFLUENZA 2 Negative (Negative); PARAINFLUENZA 3 Negative (Negative); RHINOVIRUS Negative (Negative); RSV A Negative (Negative); RSV B Negative (Negative)
[2018-03-30 18:06] LABS: IgE 2149 IU/mL (0-100)
== END 2018-03-27 14:41 | disposition short-term general hospital (02) | DRG 871 ==
LOC: M.ERS 15:09 → M.ICU 16:29 → M.TBA-ER 16:29 → M.ICU 17:56 → M.2W 03-16 14:55 → M.ICU 03-16 21:00 → M.2W 03-19 11:07
PROVIDERS: Family Medicine; Internal Medicine; Internal Medicine Pulmonary Disease; ADMIT Internal Medicine
PROC: 5A09357 Assistance with Respiratory Ventilation, Less than 24 Consecutive Hours, Continuous Positive Airway Pressure (ICD-10-PCS; principal; 2018-03-13)
PROC: 5A09357 Assistance with Respiratory Ventilation, Less than 24 Consecutive Hours, Continuous Positive Airway Pressure (ICD-10-PCS; 2018-03-14)
PROC: 5A09357 Assistance with Respiratory Ventilation, Less than 24 Consecutive Hours, Continuous Positive Airway Pressure (ICD-10-PCS; 2018-03-15)
PROC: 5A09357 Assistance with Respiratory Ventilation, Less than 24 Consecutive Hours, Continuous Positive Airway Pressure (ICD-10-PCS; 2018-03-16)
PROC: 5A09357 Assistance with Respiratory Ventilation, Less than 24 Consecutive Hours, Continuous Positive Airway Pressure (ICD-10-PCS; 2018-03-17)
PROC: 5A09357 Assistance with Respiratory Ventilation, Less than 24 Consecutive Hours, Continuous Positive Airway Pressure (ICD-10-PCS; 2018-03-18)
PROC: 5A09357 Assistance with Respiratory Ventilation, Less than 24 Consecutive Hours, Continuous Positive Airway Pressure (ICD-10-PCS; 2018-03-19)
PROC: 5A09357 Assistance with Respiratory Ventilation, Less than 24 Consecutive Hours, Continuous Positive Airway Pressure (ICD-10-PCS; 2018-03-20)
PROC: 5A09357 Assistance with Respiratory Ventilation, Less than 24 Consecutive Hours, Continuous Positive Airway Pressure (ICD-10-PCS; 2018-03-21)
PROC: 5A09357 Assistance with Respiratory Ventilation, Less than 24 Consecutive Hours, Continuous Positive Airway Pressure (ICD-10-PCS; 2018-03-22)
PROC: 5A09357 Assistance with Respiratory Ventilation, Less than 24 Consecutive Hours, Continuous Positive Airway Pressure (ICD-10-PCS; 2018-03-23)
PROC: 5A09357 Assistance with Respiratory Ventilation, Less than 24 Consecutive Hours, Continuous Positive Airway Pressure (ICD-10-PCS; 2018-03-24)
PROC: 5A09357 Assistance with Respiratory Ventilation, Less than 24 Consecutive Hours, Continuous Positive Airway Pressure (ICD-10-PCS; 2018-03-25)
PROC: 5A09357 Assistance with Respiratory Ventilation, Less than 24 Consecutive Hours, Continuous Positive Airway Pressure (ICD-10-PCS; 2018-03-26)
PROC: 5A09357 Assistance with Respiratory Ventilation, Less than 24 Consecutive Hours, Continuous Positive Airway Pressure (ICD-10-PCS; 2018-03-27)
DX: A41.9 Sepsis, unspecified organism (principal); J69.0 Pneumonitis due to inhalation of food and vomit; J96.21 Acute and chronic respiratory failure with hypoxia; G93.40 Encephalopathy, unspecified; K86.1 Other chronic pancreatitis; E11.40 Type 2 diabetes mellitus with diabetic neuropathy, unspecified; I10 Essential (primary) hypertension; G40.909 Epilepsy, unspecified, not intractable, without status epilepticus; K74.60 Unspecified cirrhosis of liver; R29.6 Repeated falls; E11.649 Type 2 diabetes mellitus with hypoglycemia without coma; D53.9 Nutritional anemia, unspecified; E83.42 Hypomagnesemia; D69.6 Thrombocytopenia, unspecified; G43.909 Migraine, unspecified, not intractable, without status migrainosus; E11.51 Type 2 diabetes mellitus with diabetic peripheral angiopathy without gangrene; F32.9 Major depressive disorder, single episode, unspecified; F41.9 Anxiety disorder, unspecified; T38.0X5A Adverse effect of glucocorticoids and synthetic analogues, initial encounter; Y92.89 Other specified places as the place of occurrence of the external cause; Z87.891 Personal history of nicotine dependence; Z87.81 Personal history of (healed) traumatic fracture; Z91.11 Patient's noncompliance with dietary regimen; Z90.49 Acquired absence of other specified parts of digestive tract; Z79.82 Long term (current) use of aspirin; Z79.84 Long term (current) use of oral hypoglycemic drugs; Z79.899 Other long term (current) drug therapy; Z88.8 Allergy status to other drugs, medicaments and biological substances; Z82.49 Family history of ischemic heart disease and other diseases of the circulatory system